=== PATIENT | female | born 1955 | race American Indian/Alaskan Native ===

== ENCOUNTER 2017-01-23 17:44 | Inpatient (IN) | payer MEDICARE ==
[2017-01-23 19:13] LABS: Basophils % (Auto) 0.3 % (0.0-1.8); Eosinophils % (Auto) 2.9 % (0.0-4.3); Hemoglobin 13.1 gm/dl (10.1-14.3); Mean Corpuscular HGB Conc 33 % (30-34); Mean Corpuscular Hemoglobin 28 pg (28-32); Mean Corpuscular Volume 84 fl (79-97); Red Blood Count 4.74 M/mm3 (3.65-5.03); Red Cell Distribution Width 14.4 % (13.2-15.2); White Blood Count 8.1 K/mm3 (4.5-11.0)
--- NOTE | 2017-01-23 19:13 | Cat Scan Report ---
FINAL REPORT PROCEDURE: CT HEAD/BRAIN WO CON TECHNIQUE: Computerized tomography of the head was performed without contrast material. HISTORY: syncope COMPARISON: No prior studies are available for comparison. FINDINGS: Skull and scalp: Normal. Paranasal sinuses: Normal. Ventricles and subarachnoid spaces: Normal. Cerebrum: No evidence of hemorrhage, acute infarction or mass . Cerebellum and brainstem: No evidence of hemorrhage, acute infarction or mass. Vasculature: Normal. Comments: None. IMPRESSION: Normal Examination
[2017-01-23 19:17] LABS: Platelet Count 226 K/mm3 (140-440)
[2017-01-23 19:28] LABS: Alanine Aminotransferase 12 units/L (7-56); Albumin/Globulin Ratio 1.5 %; Alkaline Phosphatase 96 units/L (35-129); Anion Gap 23 mmol/L; Blood Urea Nitrogen 9 mg/dL (7-17); Carbon Dioxide 22 mmol/L (22-30); Chloride 99.3 mmol/L (98-107); Glucose 243 mg/dL (65-100); Potassium 3.8 mmol/L (3.6-5.0); Sodium 140 mmol/L (137-145); Total Protein 6.7 g/dL (6.3-8.2)
[2017-01-23 20:00] LABS: INR 1.94 (0.87-1.13); Partial Thromboplastin Time 31.3 Sec. (24.2-36.6)
--- NOTE | 2017-01-23 21:06 | Emergency Department Report ---
ED Syncope HPI - General Chief Complaint: Dizziness Stated Complaint: SYNCOPE EPISODE Time Seen by Provider: 01/23/17 18:58 - History of Present Illness Initial Comments: Patient is a 61-year-old female past medical history of pulmonary embolism, diabetes, high blood pressure who presents status post syncope. Patient was the park with her daughter on walking when she felt lightheaded and then passed. Patient is unsure if she hit her head. Patient denies having any pain but she states that she is feeling fatigued and that she has deferred just passed out before. Patient states that she feels like she may have been dehydrated but she states that "it wasn't that hot inside. " - Related Data Allergies/Adverse Reactions: Allergies latex Adverse Reaction (Severe, Verified 01/23/17 22:03) Itching,RASH shellfish derived Adverse Reaction (Severe, Unverified 05/09/13 07:52) ITCHING,HIVES, SWELLING Home Medications: Ambulatory Orders Amlodipine Besylate [Norvasc] 5 mg PO DAILY 05/09/13 Aspirin [Aspirin BABY CHEW TAB] 81 mg PO DAILY 05/09/13 Esomeprazole Magnesium [NexIUM] 40 mg PO DAILY 05/09/13 Lisinopril [Zestril TAB] 40 mg PO QDAY 05/09/13 Triamterene [Dyrenium] 25 mg PO DAILY 05/09/13 Rosuvastatin Calcium [Crestor] 40 mg PO QHS 06/24/14 Insulin Glargine [Lantus VIAL] 44 units SUB-Q QHS 30 Days 06/28/14 Prednisone [Prednisone 5 mg (6-Day Pack, 21 Tabs)] 5 mg PO .TAPER #1 tab.ds.pk 06/28/14 Insulin Detemir [Levemir Flextouch] 0 unit SQ QHS MDD 60 units 01/23/17 Rivaroxaban [Xarelto] 20 mg PO QDAY 01/23/17 metFORMIN [Glucophage] 1,000 mg PO BID 01/23/17 ED Review of Systems ROS: Stated complaint: SYNCOPE EPISODE Other details as noted in HPI Constitutional: weakness Eyes: denies: eye pain, eye discharge, vision change ENT: denies: ear pain, throat pain Respiratory: denies: cough, shortness of breath, wheezing Cardiovascular: syncope. denies: chest pain, palpitations Endocrine: no symptoms reported Gastrointestinal: denies: abdominal pain, nausea, diarrhea Genitourinary: denies: urgency, dysuria, discharge Musculoskeletal: denies: back pain, joint swelling, arthralgia Skin: denies: rash, lesions Neurological: denies: headache, weakness, paresthesias Psychiatric: denies: anxiety, depression Hematological/Lymphatic: denies: easy bleeding, easy bruising ED Past Medical Hx - Past Medical History Previous Medical History?: Yes Hx Hypertension: Yes Hx Diabetes: Yes - Surgical History Past Surgical History?: No - Social History Smoking Status: Never Smoker Substance Use Type: None - Medications Home Medications: Home Medications Medication Instructions Recorded Confirmed Last Taken Type Amlodipine Besylate [Norvasc] 5 mg PO DAILY 05/09/13 06/25/14 06/24/14 History 5 Aspirin [Aspirin BABY CHEW TAB] 81 mg PO DAILY 05/09/13 06/25/14 06/24/14 History 81 Esomeprazole Magnesium [NexIUM] 40 mg PO DAILY 05/09/13 06/25/14 06/24/14 History Lisinopril [Zestril TAB] 40 mg PO QDAY 05/09/13 06/25/14 06/24/14 History Triamterene [Dyrenium] 25 mg PO DAILY 05/09/13 06/25/14 06/24/14 History 25 Rosuvastatin Calcium [Crestor] 40 mg PO QHS 06/24/14 06/25/14 06/24/14 History 40 Insulin Glargine [Lantus VIAL] 44 units SUB-Q QHS 30 Days 06/28/14 Unknown Rx Prednisone [Prednisone 5 mg (6-Day 5 mg PO .TAPER #1 tab.ds.pk 06/28/14 Unknown Rx Pack, 21 Tabs)] Insulin Detemir [Levemir Flextouch] 0 unit SQ QHS MDD 60 units 01/23/17 Unknown History Rivaroxaban [Xarelto] 20 mg PO QDAY 01/23/17 01/23/17 Unknown History metFORMIN [Glucophage] 1,000 mg PO BID 01/23/17 01/23/17 Unknown History ED Physical Exam - General Limitations: No Limitations General appearance: alert, in no apparent distress, obese - Head Head exam: Present: atraumatic, normocephalic - Eye Eye exam: Present: normal appearance - ENT ENT exam: Present: mucous membranes moist - Neck Neck exam: Present: normal inspection - Respiratory Respiratory exam: Present: normal lung sounds bilaterally. Absent: respiratory distress - Cardiovascular Cardiovascular Exam: Present: regular rate, normal rhythm. Absent: systolic murmur, diastolic murmur, rubs, gallop - GI/Abdominal GI/Abdominal exam: Present: soft, normal bowel sounds - Extremities Exam Extremities exam: Present: normal inspection - Back Exam Back exam: Present: normal inspection - Neurological Exam Neurological exam: Present: alert, oriented X3 - Psychiatric Psychiatric exam: Present: normal affect, normal mood - Skin Skin exam: Present: warm, dry, intact, normal color. Absent: rash ED Course Vital Signs 01/23/17 18:18 Temperature 98.6 F Pulse Rate 90 Respiratory 18 Rate Blood Pressure 126/85 O2 Sat by Pulse 96 Oximetry - Reevaluation(s) Reevaluation #1: 01/23/17 21:40 Patient is still feeling lightheaded or fluids and give her patient some ED Medical Decision Making - Lab Data Result diagrams: 01/23/17 18:44 01/23/17 18:44 Laboratory Results - last 24 hr 01/23/17 01/23/17 01/23/17 18:09 18:44 18:44 WBC 8.1 RBC 4.74 Hgb 13.1 Hct 40.0 MCV 84 MCH 28 MCHC 33 RDW 14.4 Plt Count 226 Lymph % (Auto) 29.5 [place] % (Auto) 6.6 Eos % (Auto) 2.9 Baso % (Auto) 0.3 Lymph # 2.4 [place] # 0.5 Eos # 0.2 Baso # 0.0 Seg Neutrophils % 60.7 Seg Neutrophils # 4.9 PT INR APTT D-Dimer Sodium 140 Potassium 3.8 Chloride 99.3 Carbon Dioxide 22 Anion Gap 23 BUN 9 Creatinine 0.9 Estimated GFR > 60 BUN/Creatinine Ratio 10.00 Glucose 243 H POC Glucose 253 H Calcium 9.0 Total Bilirubin 0.40 AST 16 ALT 12 Alkaline Phosphatase 96 Troponin T Total Protein 6.7 Albumin 4.0 Albumin/Globulin Ratio 1.5 01/23/17 01/23/17 19:23 19:23 WBC RBC Hgb Hct MCV MCH MCHC RDW Plt Count Lymph % (Auto) [place] % (Auto) Eos % (Auto) Baso % (Auto) Lymph # [place] # Eos # Baso # Seg Neutrophils % Seg Neutrophils # PT 22.2 H INR 1.94 H APTT 31.3 D-Dimer 154.47 Sodium Potassium Chloride Carbon Dioxide Anion Gap BUN Creatinine Estimated GFR BUN/Creatinine Ratio Glucose POC Glucose Calcium Total Bilirubin AST ALT Alkaline Phosphatase Troponin T < 0.010 Total Protein Albumin Albumin/Globulin Ratio - EKG Data 01/23/17 21:42 Patient has a normal sinus rhythm no interval changes no ST segment elevations or T-wave inversions no Q waves. - Radiology Data Radiology results: report reviewed, image reviewed CT of head shows no acute intracranial abnormality. - Medical Decision Making Chief medical diagnosis: Syncope secondary to arrhythmia Differential medical diagnosis: Metabolic abnormality, PE, dehydration We'll get CBC CMP EKG CT head EKG troponin fluids and meclizine. The patient's history of prior PE despite having negative d-dimer and diabetes patient needs to be admitted for syncope workup. Critical care attestation.: If time is entered above; I have spent that time in minutes in the direct care of this critically ill patient, excluding procedure time. ED Disposition Clinical Impression: Syncope and collapse, Dizziness, Dehydration Disposition: OP ADMIT IP TO THIS HOSP Is pt being admited?: No Does the pt Need Aspirin: No Condition: Stable
[2017-01-23] MEDS ORDERED: NACL 0.9% 1000 ML 1,000 ML IV ONE (21:41)
[2017-01-23] MEDS ORDERED: ANTIVERT PO ONE (21:41)
[2017-01-23] MEDS ORDERED: PROVENTIL IH PRN (23:31)
[2017-01-23] MEDS ORDERED: TYLENOL PO PRN (23:31)
--- NOTE | 2017-01-24 03:59 | Admit Criteria Form ---
Admission Criteria Documentation: SYNCOPE Clinical Indications for Admission to Inpatient Care ( Place 'X' for any and all applicable criteria): Admission is indicated for syncope and ANY ONE of the following (1)(2)(3)(4)(5) (6)(7) : [ X]I. Inpatient admission required rather than observation care (Also use Syncope: Observation Care Criteria as appropriate) because of ANY ONE of the following: [ ]a) Hemodynamic instability that is severe or persistent [ ]b) Cardiac arrhythmias of immediate concern identified or strongly suspected (eg, needs electrophysiologic study) [ ]c) Acute coronary syndrome identified (Also use Myocardial Infarction or Angina Criteria form ) [ ]d) Structural cardiac disorder (eg, aortic stenosis) suspected as cause that requires immediate correction [ ]e) Respiratory symptoms (eg, dyspnea, tachypnea) that are severe or persistent [ ]f) Neurologic signs or symptoms that are severe or persistent ( eg, stroke, seizures, altered mental status) [ ]g) Severe electrolyte abnormalities requiring inpatient care [ ]h) Supplemental oxygen or respiratory treatment for over 24 hrs that are performable only in acute inpatient setting [ ]i) IV fluid to replace significant ongoing (eg, for over 24 hrs ) losses (>3 L/m2 per day) [ ]j) Continuous intravenous infusion of anticoagulation, platelet inhibitor, vasoactive, or antiarrhythmic medication(15)(16) [ ]k) Pulmonary artery catheter monitoring [ ]l) Temporary pacemaker placement(17) [ ]m) Emergent cardioversion(18) [ X]n) Other conditions, treatment or monitoring requiring inpatient admission [ ]II. Suspicion of imminently dangerous cause (eg, rare causes like pericardial tamponade, pulmonary embolism) [ ]III. Syncope causing severe injury requiring hospitalization Extended stay beyond goal length of stay may be needed for(28) [ ]a) Dangerous arrhythmia(15)(23)(27)(29) [ ]b) Myocardial ischemia [ ]c) Seizure disorder [ ]d) Syncope-related injuries The original [employer] content created by [employer] has been revised. The portions of the content which have been revised are identified through the use of italic text or in bold, and [employer] has neither reviewed nor approved the modified material. All other unmodified content is copyright [facility] [employer]. Please see references footnoted in the original [facility] edition 2016 Admission Criteria Met: Yes
--- NOTE | 2017-01-24 06:27 | History and Physical Report ---
History of Present Illness Date of admission: 01/23/17 23:31 Chief complaint: i passed out. History of present illness: 61 YO Female with HTN, DM, MO,Metabolic Syndrome, PE on anticoagulation presents to ED for evaluation. Pt states that she passed out while walking with her daughter in the park. Pt states that while walking- she felt lightheaded and then passed. Patient is unsure if she hit her head. Patient denies fever, chills, CP, Palpitations, NVD, vertigo, seizure, BRBPR, headache, loss of bowel/ bladder continence, shortness of breath, productive cough, or known ill contacts. Past History Past Medical History: diabetes, hypertension, pulmonary embolism, other (morbid obesity) Past Surgical History: No surgical history, Other (reviewed) Social history: single. denies: smoking, alcohol abuse, prescription drug abuse Family history: diabetes, hypertension Medications and Allergies Allergies Allergy/AdvReac Type Severity Reaction Status Date / Time latex AdvReac Severe Itching,PAHN Verified 01/23/17 22:03 H shellfish derived AdvReac Severe ITCHING,HIVES, Unverified 05/09/13 07:52 SWELLING Home Medications Medication Instructions Recorded Confirmed Last Taken Type Amlodipine Besylate [Norvasc] 5 mg PO DAILY 05/09/13 06/25/14 06/24/14 History 5 Aspirin [Aspirin BABY CHEW TAB] 81 mg PO DAILY 05/09/13 06/25/14 06/24/14 History 81 Esomeprazole Magnesium [NexIUM] 40 mg PO DAILY 05/09/13 06/25/14 06/24/14 History Lisinopril [Zestril TAB] 40 mg PO QDAY 05/09/13 06/25/14 06/24/14 History Triamterene [Dyrenium] 25 mg PO DAILY 05/09/13 06/25/14 06/24/14 History 25 Rosuvastatin Calcium [Crestor] 40 mg PO QHS 06/24/14 06/25/14 06/24/14 History 40 Insulin Glargine [Lantus VIAL] 44 units SUB-Q QHS 30 Days 06/28/14 Unknown Rx Prednisone [Prednisone 5 mg (6-Day 5 mg PO .TAPER #1 tab.ds.pk 06/28/14 Unknown Rx Pack, 21 Tabs)] Insulin Detemir [Levemir Flextouch] 0 unit SQ QHS MDD 60 units 01/23/17 Unknown History Rivaroxaban [Xarelto] 20 mg PO QDAY 01/23/17 01/23/17 Unknown History metFORMIN [Glucophage] 1,000 mg PO BID 01/23/17 01/23/17 Unknown History Active Meds: Active Medications Acetaminophen (Tylenol) 650 mg PO Q4H PRN PRN Reason: Pain MILD(1-3)/Fever >100.5/CATES Albuterol (Proventil) 2.5 mg IH Q4HRT PRN PRN Reason: Shortness Of Breath Amlodipine Besylate (Norvasc) 5 mg PO DAILY BERNIE Aspirin (Baby Aspirin) 81 mg PO DAILY BERNIE Atorvastatin Calcium (Lipitor) 40 mg PO QHS BERNIE Insulin Detemir (Levemir) 44 units SUB-Q QHS BERNIE Insulin Human Regular (Novolin R) 0 units SUB-Q ACHS BERNIE PRN Reason: Protocol Last Admin: 01/24/17 02:01 Dose: 4 units Lisinopril (Zestril) 40 mg PO QDAY [facility] Miscellaneous Medication (Triamterene [Dyrenium]) 25 mg PO DAILY BERNIE Pantoprazole Sodium (Protonix) 40 mg PO DAILY [facility] Review of Systems All systems: negative Constitutional: no weight loss, no chills Ears, nose, mouth and throat: no ear pain Breasts: no normal Cardiovascular: no chest pain Respiratory: no cough Gastrointestinal: no abdominal pain Genitourinary Female: no pelvic pain Rectal: no pain Musculoskeletal: no neck stiffness Integumentary: no rash Neurological: no head injury Psychiatric: no anxiety Endocrine: no cold intolerance Hematologic/Lymphatic: no easy bruising Allergic/Immunologic: no urticaria Exam - Constitutional Vitals: Temp Pulse Resp BP Pulse Ox 98.2 F 83 22 177/85 95 01/24/17 04:00 01/24/17 04:00 01/24/17 04:00 01/24/17 04:00 01/24/17 04:00 General appearance: Present: mild distress, obese - EENT Eyes: Present: PERRL ENT: hearing intact, clear oral mucosa - Neck Neck: Present: supple, normal ROM - Respiratory Respiratory effort: normal Respiratory: bilateral: CTA - Cardiovascular Heart Sounds: Present: S1 & S2. Absent: rub, click - Extremities Extremities: pulses symmetrical, No edema Peripheral Pulses: within normal limits - Abdominal General gastrointestinal: Present: soft, non-tender, non-distended, normal bowel sounds Female genitourinary: Present: normal - Integumentary Integumentary: Present: clear, warm, dry - Musculoskeletal Musculoskeletal: gait normal, strength equal bilaterally - Psychiatric Psychiatric: appropriate mood/affect, intact judgment & insight - Neurologic Neurologic: CNII-XII intact, moves all extremities Results - Labs CBC & Chem 7: 01/23/17 18:44 01/23/17 18:44 Labs: Abnormal lab results 01/24/17 01/24/17 Range/Units 00:49 05:54 POC Glucose 267 H 276 H (70-105) Assessment and Plan - Patient Problems (1) Unconscious state Current Visit: Yes Status: Acute Plan to address problem: CT head, supportive care, Neuro checks, EEG, echo, remote telemetry, carotid doppler. (2) Diabetes mellitus Current Visit: No Status: Acute Qualifiers: Diabetes mellitus type: D Diabetes mellitus complication status: D Diabetes mellitus complication detail: D Diabetic retinopathy severity: D Proliferative retinopathy type: P Diabetes mellitus macular edema: D Diabetes mellitus custodial insulin use: D Laterality: L Chronic kidney disease stage: C Plan to address problem: ADA diet, insulin, accu check (3) Hypertension Current Visit: No Status: Acute Qualifiers: Hypertension type: H Plan to address problem: monitor bp q shift, resume home medication. (4) Metabolic syndrome Current Visit: Yes Status: Acute Plan to address problem: balanced diet, increased physical activity (5) Pulmonary embolism Current Visit: Yes Status: Chronic Qualifiers: Pulmonary embolism type: P Chronicity: C Acute cor pulmonale presence: A Plan to address problem: Resume therapeutic anticoagulation, (6) DVT prophylaxis Current Visit: No Status: Acute
[2017-01-24 09:02] LABS: Bacteria,Urine 1+ /HPF (Negative); Bilirubin,Urine NEG (Negative); Blood,Urine SM (Negative); Ketones,Urine NEG (Negative); Leukocyte Esterase,Urine MOD (Negative); Nitrite,Urine NEG (Negative); Protein,Urine <15 mg/dL mg/dL (Negative)
[2017-01-24] MEDS ORDERED: TRIAMTERENE 25 MG PO SCH (10:00)
[2017-01-24] MEDS: BABY ASPIRIN PO SCH (11:11)
[2017-01-24] MEDS: PROTONIX PO SCH (11:11)
[2017-01-24] MEDS: ZESTRIL PO SCH (11:12)
[2017-01-24] MEDS: NORCO 5/325 PO PRN ×3 (11:12→23:39)
[2017-01-24] MEDS: NORVASC PO SCH (11:12)
--- NOTE | 2017-01-24 11:58 | Event Note ---
Date: 01/24/17 Brief progress note Patient seen and examined Alert and oriented Complains of severe bilateral knee pain History of syncope lasting about 3 minutes preceded by headache and dizziness Presently she denies any headache or dizziness CT of the head showed no acute lesion Workup in progress Await EEG and echo results History of pulmonary embolism diagnosed 1-1/2 months ago Continue Xarelto 20 mg daily Continue present orders including antihypertensive medications and basal and insulin sliding scale Patient states that she has been scheduled for uterine fibroid surgery on February 01
[2017-01-24] MEDS: XARELTO PO SCH (13:24)
[2017-01-24] MEDS ORDERED: LEVEMIR SUB-Q SCH (22:00)
[2017-01-25 07:04] LABS: Anion Gap 18 mmol/L; Blood Urea Nitrogen 9 mg/dL (7-17); Calcium 8.8 mg/dL (8.4-10.2); Carbon Dioxide 28 mmol/L (22-30); Chloride 100.7 mmol/L (98-107); Glucose 173 mg/dL (65-100); Potassium 3.4 mmol/L (3.6-5.0); Sodium 143 mmol/L (137-145)
[2017-01-25 08:16] VITALS: BP 150/82
[2017-01-25] MEDS: PROTONIX PO SCH (09:57)
[2017-01-25] MEDS: ZESTRIL PO SCH (09:57)
[2017-01-25] MEDS: NORVASC PO SCH (09:57)
[2017-01-25] MEDS: BABY ASPIRIN PO SCH (09:57)
[2017-01-25] MEDS: XARELTO PO SCH (12:21)
--- NOTE | 2017-01-25 13:48 | Discharge Summary ---
Providers - Providers Date of Admission: 01/23/17 23:31 Date of discharge: 01/25/17 Attending physician: FLACA ZAMORA Primary care physician: ANNIE CORTÉS Hospitalization Condition: Stable Hospital course: Patient is a 61-year-old woman with a history of abnormal uterine bleeding with fibroids, pulmonary embolism due to hormone replacement therapy, type 2 diabetes mellitus, hypertension who presents with a syncopal episode. Workup negative so far. There is no history of having a seizure episode so she doesn' t need EEG. ECHO does not show any significant structural heart disease, telemetry has been unrevealing. Single episode of syncope, no further workup needed. -Syncope episode, most likely Autonomic dysfunction due to vasovagal episode. -Pulmonary embolism provoked: No hormone replacement/OCP, continue Xarelto as ordered from [facility] -Abnormal uterine bleeding with fibroids was placed on Hormone replacement to stop bleeding leading to above, scheduled for fibroid surgery in January: She will need clearance from her pcp Dr. Cortés Disposition: DC-01 TO HOME OR SELFCARE Time spent for discharge: 34 minutes Core Measure Documentation - Palliative Care Palliative Care/ Comfort Measures: Not Applicable - Core Measures Any of the following diagnoses?: none - VTE Discharge Requirements Deep Vein Thrombosis/Pulmonary Embolism Present on Admission: No Has pt received <5 days of overlap therapy or INR<2.0: No Anticoagulant overlap therapy prescribed at discharge: No Contraindication No Overlap Therapy order at DC: Not Indicated Exam - Physical Exam Narrative exam: GEN: WDWN, NAD, AWAKE, ALERT, ORIENTATED x 3 HEENT: NCAT, PERRL, EOMI, OP CLEAR NECK: SUPPLE, NO THYROMEGALY, NO JVD, NO LAD CVS: RRR, NORMAL S1S2 LUNGS/CHEST: CTA B, NORMAL CHEST EXPANSION B, GOOD AIR ENTRY B ABD: SOFT, NTND, GBS, NO REBOUND OR GUARDING EXT/SKIN: NO SIGNIFICANT EDEMA OR RASH MSK: FROM X 4 EXTREMITIES NEURO: CN 2-12 GROSSLY INTACT, NO FOCAL DEFICITS PSY: CALM - Constitutional Vitals: Temp Pulse Resp BP Pulse Ox 98.5 F 80 18 150/82 98 01/25/17 07:30 01/25/17 07:30 01/25/17 07:30 01/25/17 09:57 01/25/17 07:30 Plan Activity: no driving until cleared by PCP, other (no strenous activites until cleared by PCP. ) Diet: low salt Follow up with: PRIMARY CARE, [Referring] - 3-5 Days
[2017-01-25] MEDS ORDERED: K-DUR PO ONE (14:00)
== END 2017-01-25 16:15 | disposition home or self-care (01) | DRG 74 ==
LOC: ED 17:44 → 3A 23:31
PROVIDERS: ADMIT Internal Medicine; ATTEND Internal Medicine
DX: G90.8 Other disorders of autonomic nervous system (principal); Z68.41 Body mass index [BMI] 40.0-44.9, adult; E11.9 Type 2 diabetes mellitus without complications; E88.81 Metabolic syndrome and other insulin resistance; I10 Essential (primary) hypertension; D25.9 Leiomyoma of uterus, unspecified; N93.9 Abnormal uterine and vaginal bleeding, unspecified; F45.8 Other somatoform disorders; E86.0 Dehydration; E66.01 Morbid (severe) obesity due to excess calories; Z82.49 Family history of ischemic heart disease and other diseases of the circulatory system; Z86.711 Personal history of pulmonary embolism; Z91.040 Latex allergy status; Z91.013 Allergy to seafood; Z83.3 Family history of diabetes mellitus
CPT/HCPCS: 36415; 70450; 80048; 80053; 81001; 82962; 84484; 85025; 85379; 85610; 85730; 93005; 93010; 93306; 93880; A9270-GY; J1815; J1818; J7030